=== PATIENT | female | born 1950 | race Caucasian/White ===

== ENCOUNTER 2021-02-04 10:56 | Observation (INO) ==
[2021-02-04 11:52] LABS: Basophils % 0.8 %; Eosinophils # 0.1 K/mcL (0.0-0.6); Eosinophils % 1.2 %; Hematocrit 46.4 % (35.3-44.9); Hemoglobin 15.3 g/dL (11.5-15.4); Immature Granulocytes % 0.2 % (0-4); Lymphocytes # 1.3 K/mcL (0.6-4.6); Lymphocytes % 25.9 %; Mean Corpuscular Hemoglobin 28.3 pg (28.0-33.3); Mean Corpuscular Volume 85.9 fL (83.0-100.0); Mean Platelet Volume 10.4 fL (9.4-12.4); Monocytes # 0.4 K/mcL (0.0-1.3); Monocytes % 7.7 %; Neutrophils # 3.2 K/mcL (1.6-8.9); Platelet Count 226 K/mcL (140-400); Red Cell Distribution Width 13.8 % (11.5-14.5); Segmented Neutrophils % 64.2 %; White Blood Count 5.1 K/mcL (4.3-11.1)
[2021-02-04 12:02] LABS: Activated Partial Thrombo Time 32.2 Seconds (26.0-36.0)
[2021-02-04 12:14] LABS: BUN/Creatinine Ratio 14 (6-26); Blood Urea Nitrogen 11 mg/dL (8-23); Calcium 9.1 mg/dL (8.6-10.3); Carbon Dioxide 20 mEq/L (23-29); Chloride 110 mEq/L (98-107); Glucose 109 mg/dL (70-105); Magnesium 2.2 mg/dL (1.6-2.6); Osmolality,Calculated 290 (280-300); Potassium 3.4 mEq/L (3.5-5.1); Sodium 140 mEq/L (136-145); Troponin I < 0.03 ng/mL (< 0.04); eGFR For African Americans > 60 (> 60); eGFR For Non-African Americans > 60 (> 60)
[2021-02-04] MEDS ORDERED: Potassium Chloride Elixir 20 MEQ/15 ML UDC PO ONE (12:16)
[2021-02-04] MEDS: DilTIAZem 50 MG/50 ML IV.SOLN IVC SCH ×2 (12:23→22:57)
[2021-02-04 12:27] LABS: Thyroid Stimulating Hormone 1.341 mcIU/mL (0.340-5.600)
[2021-02-04] MEDS ORDERED: Ondansetron 4 MG/2 ML VIAL IVP PRN (14:20)
[2021-02-04] MEDS ORDERED: Naloxone 0.4 MG/ML INJ IVP PRN (14:20)
[2021-02-04] MEDS ORDERED: Perflutren Lipid Microsphere 1.3 ML in 0.9 % Sodium Chloride 8.7 ML IVP PRN (14:24)
[2021-02-04] MEDS ORDERED: Ringers Solution, Lactated 1,000 ML IVC SCH (14:30)
[2021-02-04] MEDS ORDERED: Isovue-370 500 ML BOTTLE IVP ONE (14:53)
[2021-02-04] MEDS ORDERED: *HR* Enoxaparin 80 MG/0.8 ML SYRINGE SQ SCH (14:54)
[2021-02-04] MEDS: DilTIAZem CD (24hr) 180 MG CAP.ER.24H PO SCH (16:49)
[2021-02-05] MEDS ORDERED: Acetaminophen 325 MG TABLET PO PRN (01:49)
[2021-02-05 02:13] LABS: BUN/Creatinine Ratio 18 (6-26); Blood Urea Nitrogen 17 mg/dL (8-23); Carbon Dioxide 20 mEq/L (23-29); Chloride 109 mEq/L (98-107); Glucose 133 mg/dL (70-105); Magnesium 2.6 mg/dL (1.6-2.6); Osmolality,Calculated 289 (280-300); Phosphorous 4.2 mg/dL (2.7-4.5); Potassium 3.7 mEq/L (3.5-5.1); Sodium 138 mEq/L (136-145); eGFR For African Americans > 60 (> 60); eGFR For Non-African Americans 58 (> 60)
[2021-02-05] MEDS ORDERED: *HR* Enoxaparin 80 MG/0.8 ML SYRINGE SQ SCH (06:00)
[2021-02-05] MEDS: DilTIAZem 50 MG/50 ML IV.SOLN IVC SCH (06:14)
[2021-02-05] MEDS: DilTIAZem CD (24hr) 180 MG CAP.ER.24H PO SCH (07:45)
[2021-02-05] MEDS ORDERED: BuPROPion XL (24 HR) 150 MG TABLET PO SCH (09:00)
[2021-02-05 11:29] VITALS: BP 132/78
[2021-02-05] MEDS ORDERED: Apixaban 5 MG TABLET PO SCH (11:45)
== END 2021-02-05 12:40 | disposition home or self-care (01) ==
LOC: EMEROOARM 10:56 → 2ANU 10:56
PROVIDERS: ADMIT Internal Medicine; ATTEND Internal Medicine

== ENCOUNTER 2021-06-16 10:34 | Observation (INO) ==
[2021-06-16] MEDS ORDERED: 0.9 % Sodium Chloride 1,000 ML IVC ONE (11:06)
[2021-06-16] MEDS ORDERED: DilTIAZem 50 MG/50 ML IV.SOLN IVC SCH ×2 (11:15→16:00)
[2021-06-16 11:36] LABS: Basophils % 0.4 %; Eosinophils # 0.1 K/mcL (0.0-0.6); Eosinophils % 1.6 %; Hematocrit 47.4 % (35.3-44.9); Hemoglobin 15.2 g/dL (11.5-15.4); Immature Granulocytes % 0.2 % (0-4); Lymphocytes # 1.2 K/mcL (0.6-4.6); Lymphocytes % 24.1 %; Mean Corpuscular HGB Conc 32.1 g/dL (31.6-35.5); Mean Corpuscular Hemoglobin 27.7 pg (28.0-33.3); Mean Corpuscular Volume 86.5 fL (83.0-100.0); Mean Platelet Volume 10.5 fL (9.4-12.4); Monocytes # 0.5 K/mcL (0.0-1.3); Monocytes % 10.1 %; Neutrophils # 3.2 K/mcL (1.6-8.9); Platelet Count 228 K/mcL (140-400); Red Blood Count 5.48 M/mcL (3.82-4.97); Red Cell Distribution Width 12.7 % (11.5-14.5); Segmented Neutrophils % 63.6 %; White Blood Count 5.1 K/mcL (4.3-11.1)
[2021-06-16 11:48] LABS: INR 1.3; Prothrombin Time 14.4 Seconds (9.4-12.1)
[2021-06-16 11:51] LABS: Activated Partial Thrombo Time 43.3 Seconds (26.0-36.0)
[2021-06-16 12:18] LABS: BUN/Creatinine Ratio 19 (6-26); Blood Urea Nitrogen 15 mg/dL (8-23); Calcium 9.8 mg/dL (8.6-10.3); Carbon Dioxide 23 mEq/L (23-29); Chloride 106 mEq/L (98-107); Glucose 111 mg/dL (70-105); Magnesium 2.2 mg/dL (1.6-2.6); Osmolality,Calculated 292 (280-300); Potassium 3.8 mEq/L (3.5-5.1); Sodium 140 mEq/L (136-145); Thyroid Stimulating Hormone 1.938 mcIU/mL (0.340-5.600); Troponin I < 0.03 ng/mL (< 0.04); eGFR For African Americans > 60 (> 60); eGFR For Non-African Americans > 60 (> 60)
[2021-06-16 12:35] LABS: Bilirubin,Urine Negative (Negative); Blood,Urine Negative (Negative); Clarity,Urine Clear (Clear); Color,Urine Colorless (Yellow); Glucose,Urine (UA) Normal (Normal); Ketones,Urine Negative (Negative); Leukocyte Esterase,Urine Negative (Negative); Nitrite,Urine Negative (Negative); PH,Urine 6.5 pH Units (5.0-8.0); Protein,Urine Negative (Neg-Trace); Specific Gravity,Urine 1.007 (1.010-1.025); Urobilinogen,Urine Normal (Normal)
[2021-06-16] MEDS ORDERED: DilTIAZem CD (24hr) 180 MG CAP.ER.24H PO ONE (14:00)
[2021-06-16] MEDS ORDERED: Naloxone 0.4 MG/ML INJ IVP PRN (15:14)
[2021-06-16] MEDS ORDERED: DilTIAZem CD (24hr) 120 MG CAP.ER.24H PO ONE (16:41)
[2021-06-16] MEDS ORDERED: DilTIAZem CD (24hr) 120 MG CAP.ER.24H PO SCH (16:45)
[2021-06-16] MEDS ORDERED: 0.9 % Sodium Chloride 1,000 ML IVC SCH (16:45)
[2021-06-16] MEDS: Apixaban 5 MG TABLET PO SCH (19:50)
[2021-06-17 04:49] LABS: Basophils % 0.3 %; Eosinophils # 0.1 K/mcL (0.0-0.6); Hematocrit 42.9 % (35.3-44.9); Hemoglobin 14.1 g/dL (11.5-15.4); Immature Granulocytes % 0.3 % (0-4); Lymphocytes # 1.1 K/mcL (0.6-4.6); Lymphocytes % 30.6 %; Mean Corpuscular HGB Conc 32.9 g/dL (31.6-35.5); Mean Corpuscular Hemoglobin 28.1 pg (28.0-33.3); Mean Corpuscular Volume 85.5 fL (83.0-100.0); Mean Platelet Volume 10.4 fL (9.4-12.4); Monocytes # 0.4 K/mcL (0.0-1.3); Monocytes % 12.3 %; Neutrophils # 1.9 K/mcL (1.6-8.9); Platelet Count 227 K/mcL (140-400); Red Blood Count 5.02 M/mcL (3.82-4.97); Red Cell Distribution Width 12.9 % (11.5-14.5); Segmented Neutrophils % 54.5 %; White Blood Count 3.5 K/mcL (4.3-11.1)
[2021-06-17 05:05] LABS: BUN/Creatinine Ratio 20 (6-26); Blood Urea Nitrogen 13 mg/dL (8-23); Carbon Dioxide 23 mEq/L (23-29); Chloride 107 mEq/L (98-107); Glucose 119 mg/dL (70-105); Potassium 3.6 mEq/L (3.5-5.1); Sodium 139 mEq/L (136-145); eGFR For African Americans > 60 (> 60); eGFR For Non-African Americans > 60 (> 60)
[2021-06-17 05:06] LABS: Calcium 9.4 mg/dL (8.6-10.3); Osmolality,Calculated 289 (280-300); Phosphorous 3.3 mg/dL (2.7-4.5)
[2021-06-17 08:30] VITALS: O2SAT 98
[2021-06-17] MEDS: Apixaban 5 MG TABLET PO SCH (08:35)
[2021-06-17] MEDS ORDERED: BuPROPion XL (24 HR) 150 MG TABLET PO SCH (09:00)
[2021-06-17] MEDS ORDERED: DilTIAZem CD (24hr) 180 MG CAP.ER.24H PO ONE (09:00)
[2021-06-17 10:57] VITALS: BP 144/79; PULSE 63; TEMP 98.1
== END 2021-06-17 15:26 | disposition home or self-care (01) ==
LOC: 3BNU 10:34 → EMEROOARM 10:34 → SUATTDRO 15:16 → 3BNU 15:59
PROVIDERS: ADMIT Student in an Organized Health Care Education/Training Program; ATTEND Internal Medicine

== ENCOUNTER 2021-08-03 09:52 | Observation (INO) ==
[2021-08-03] MEDS ORDERED: 0.9 % Sodium Chloride 1,000 ML IV ONE (10:05)
[2021-08-03 10:22] LABS: Basophils % 0.5 %; Eosinophils # 0.1 K/mcL (0.0-0.6); Eosinophils % 1.3 %; Hematocrit 46.3 % (35.3-44.9); Hemoglobin 15.1 g/dL (11.5-15.4); Immature Granulocytes % 0.3 % (0-4); Lymphocytes # 1.2 K/mcL (0.6-4.6); Lymphocytes % 14.6 %; Mean Corpuscular HGB Conc 32.6 g/dL (31.6-35.5); Mean Corpuscular Hemoglobin 27.7 pg (28.0-33.3); Mean Platelet Volume 10.3 fL (9.4-12.4); Monocytes # 0.4 K/mcL (0.0-1.3); Monocytes % 5.5 %; Neutrophils # 6.1 K/mcL (1.6-8.9); Platelet Count 275 K/mcL (140-400); Red Blood Count 5.45 M/mcL (3.82-4.97); Red Cell Distribution Width 13.6 % (11.5-14.5); Segmented Neutrophils % 77.8 %; White Blood Count 7.9 K/mcL (4.3-11.1)
[2021-08-03 10:46] LABS: Alanine Aminotransferase 15 Units/L (7-52); Albumin 4.9 g/dL (3.5-5.7); Albumin/Globulin Ratio 1.8 (1.1-2.2); Alkaline Phosphatase 132 Units/L (34-104); Aspartate Amino Transferase 15 Units/L (13-39); BUN/Creatinine Ratio 15 (6-26); Bilirubin,Total 0.6 mg/dL (0.3-1.0); Blood Urea Nitrogen 13 mg/dL (8-23); Calcium 10.1 mg/dL (8.6-10.3); Carbon Dioxide 26 mEq/L (23-29); Chloride 103 mEq/L (98-107); Globulin 2.7 g/dL (2.4-3.5); Glucose 134 mg/dL (70-105); Magnesium 2.1 mg/dL (1.6-2.6); Osmolality,Calculated 292 (280-300); Potassium 3.6 mEq/L (3.5-5.1); Sodium 140 mEq/L (136-145); Total Protein 7.6 g/dL (6.4-8.9); Troponin I < 0.03 ng/mL (< 0.04); eGFR For African Americans > 60 (> 60); eGFR For Non-African Americans > 60 (> 60)
[2021-08-03 10:56] LABS: Thyroid Stimulating Hormone 1.836 mcIU/mL (0.340-5.600)
[2021-08-03] MEDS ORDERED: Ondansetron 4 MG/2 ML VIAL IVP PRN (12:48)
[2021-08-03] MEDS ORDERED: Acetaminophen 325 MG TABLET PO PRN (12:48)
[2021-08-03] MEDS: DilTIAZem 50 MG/50 ML IV.SOLN IVC SCH (12:50)
[2021-08-03] MEDS ORDERED: Metoprolol XL (24 HR) Succ 50 MG TAB.ER.24H PO SCH (13:00)
[2021-08-03] MEDS: Apixaban 5 MG TABLET PO SCH (20:37)
[2021-08-04 05:19] LABS: Hematocrit 38.8 % (35.3-44.9); Mean Corpuscular HGB Conc 32.7 g/dL (31.6-35.5); Mean Corpuscular Hemoglobin 28.3 pg (28.0-33.3); Mean Corpuscular Volume 86.6 fL (83.0-100.0); Mean Platelet Volume 10.5 fL (9.4-12.4); Platelet Count 257 K/mcL (140-400); Red Blood Count 4.48 M/mcL (3.82-4.97); Red Cell Distribution Width 13.7 % (11.5-14.5); White Blood Count 5.2 K/mcL (4.3-11.1)
[2021-08-04 05:20] LABS: Hemoglobin 12.7 g/dL (11.5-15.4)
[2021-08-04 05:36] LABS: BUN/Creatinine Ratio 15 (6-26); Blood Urea Nitrogen 15 mg/dL (8-23); Calcium 9.3 mg/dL (8.6-10.3); Carbon Dioxide 25 mEq/L (23-29); Chloride 105 mEq/L (98-107); Glucose 118 mg/dL (70-105); Osmolality,Calculated 290 (280-300); Potassium 3.7 mEq/L (3.5-5.1); Sodium 139 mEq/L (136-145); eGFR For African Americans > 60 (> 60); eGFR For Non-African Americans 56 (> 60)
[2021-08-04 07:34] VITALS: BP 167/75; PULSE 63; TEMP 97.9; O2SAT 98
[2021-08-04] MEDS: DilTIAZem 50 MG/50 ML IV.SOLN IVC SCH (08:03)
[2021-08-04] MEDS: Apixaban 5 MG TABLET PO SCH (08:30)
[2021-08-04] MEDS ORDERED: DilTIAZem CD (24hr) 180 MG CAP.ER.24H PO SCH (09:00)
== END 2021-08-04 13:31 | disposition home or self-care (01) ==
LOC: EMEROOARM 09:52 → 2ANU 09:52
PROVIDERS: ADMIT Internal Medicine; ATTEND Internal Medicine

== ENCOUNTER 2022-06-28 07:12 | Observation (INO) ==
[2022-06-28] MEDS ORDERED: 0.9 % Sodium Chloride 1,000 ML ONE ×3 (07:52→11:06)
[2022-06-28] MEDS ORDERED: Protamine Sulfate 50 MG/5 ML VIAL IVP ONE (08:57)
[2022-06-28] MEDS ORDERED: *HR* Heparin 10,000 UNIT/10 ML VIAL ONE (08:57)
[2022-06-28] MEDS ORDERED: Heparin 1,000 UNITS/500 mL 2,000 ML ONE (08:57)
[2022-06-28] MEDS ORDERED: Iopamidol - 370 200 ML INFUS..BTL ONE (08:57)
[2022-06-28] MEDS ORDERED: *HR* Propofol 200 MG/20 ML VIAL IVP ONE (10:43)
[2022-06-28] MEDS ORDERED: *HR* Phenylephrine 10 MG/ML VIAL IVC ONE (10:43)
[2022-06-28] MEDS ORDERED: *HR* Succinylcholine 200 MG/10 ML VIAL IVP ONE (10:43)
[2022-06-28] MEDS ORDERED: EPHEDrine 50 MG/ML VIAL IVP ONE (10:43)
[2022-06-28] MEDS ORDERED: Lidocaine -MPF 2% 5 ML VIAL SQ ONE (10:43)
[2022-06-28] MEDS ORDERED: Lidocaine -MPF 4% 5 ML AMPUL TP ONE (10:43)
[2022-06-28] MEDS ORDERED: Ondansetron 4 MG/2 ML VIAL IVP ONE (10:43)
[2022-06-28] MEDS ORDERED: *HR* Rocuronium Bromide 50 MG/5 ML VIAL IVP ONE (10:43)
[2022-06-28] MEDS ORDERED: Naloxone 0.4 MG/ML INJ IVP PRN (13:19)
[2022-06-28] MEDS: Apixaban 5 MG TABLET PO SCH (19:57)
[2022-06-29] MEDS: Apixaban 5 MG TABLET PO SCH (08:15)
[2022-06-29] MEDS ORDERED: DilTIAZem CD (24hr) 180 MG CAP.ER.24H PO SCH (09:00)
[2022-06-29] MEDS ORDERED: BuPROPion XL (24 HR) 150 MG TABLET PO SCH (09:00)
[2022-06-29 09:33] VITALS: BP 135/80; PULSE 94; TEMP 97.6; O2SAT 99
== END 2022-06-29 10:44 | disposition home or self-care (01) ==
LOC: INVDIALAB 07:12 → INTOOBSV 14:29 → 2NNU 14:29
PROVIDERS: ADMIT Internal Medicine Clinical Cardiac Electrophysiology; ATTEND Internal Medicine Clinical Cardiac Electrophysiology